=== PATIENT | male | born 1985 | race Two or more races ===

== ENCOUNTER 2021-03-19 21:02 | Emergency (ER) | payer SELFPAY ==
[~2021-03-19] VITALS: Ht 172.7 cm; Wt 95.3 kg
[2021-03-19 21:23] VITALS: BP 128/78
[2021-03-20] MEDS ORDERED: BACITRACIN TOP OINT 1 UD PKG TOP ONE (00:15)
== END 2021-03-20 00:48 | disposition home or self-care (01) ==
LOC: ER 21:05
DX: S80.211A Abrasion, right knee, initial encounter (principal); M25.461 Effusion, right knee; W18.09XA Striking against other object with subsequent fall, initial encounter; Y93.89 Activity, other specified; Y92.89 Other specified places as the place of occurrence of the external cause; Y99.8 Other external cause status
CPT/HCPCS: 29505; 73562